=== PATIENT | female | born 1995 | race Caucasian/White ===

== ENCOUNTER 2018-06-09 12:14 | Emergency (ER) | payer BC ==
[~2018-06-09] VITALS: Ht 167.6 cm; Wt 59.0 kg
[2018-06-09 12:24] VITALS: BP 140/89
[2018-06-09] MEDS ORDERED: Norco 5mg/325mg tab ORAL ONE (12:45)
--- NOTE | 2018-06-09 13:23 | Emergency Room Report ---
History of Present Illness General Chief Complaint: Laceration Source: Patient Present Illness HPI 42-year-old female presents to the emergency department complaining of 10 out of 10 in severity pain localized to the distal aspect of the right middle finger times one day. Patient reports she sustained a laceration when she was carrying a heavy face which broke and sliced her finger. Patient reports that she is right-hand dominant. Patient denies taking blood thinning medications she denies suspicion for tiny pieces of glass/foreign bodies in the finger. Patient states she has not taken any medication for her pain. Patient reports pain is worse upon movement of the finger or palpation. Patient denies relieving factors. She states she is up-to-date with her tetanus vaccination. She denies paresthesias or loss of gross motor movements of the affected extremity. Allergies: Coded Allergies: No Known Allergies (Unverified , 06/09/18) Patient History Past Medical History: see triage record Past Surgical History: none Pertinent Family History: none Last Menstrual Period: 05/16/18 Now: No Immunizations: UTD Reviewed Nursing Documentation: PMH: Agreed; PSxH: Agreed Nursing Documentation-PMH Past Medical History: No Stated History Review of Systems All Other Systems: negative except mentioned in HPI Physical Exam Vital Signs Date Time Temp Pulse Resp B/P (MAP) Pulse Ox O2 Delivery O2 Flow Rate FiO2 06/09/18 12:19 98.2 75 18 140/89 98 Room Air Sp02 EP Interpretation: reviewed, normal General Appearance: alert, GCS 15, non-toxic, mild distress Head: normocephalic, atraumatic Eyes: bilateral eye normal inspection, bilateral eye PERRL ENT: hearing grossly normal, normal voice Neck: full range of motion Respiratory: lungs clear, normal breath sounds, speaking full sentences Cardiovascular #1: regular rate, rhythm, normal capillary refill Musculoskeletal: back normal, gait/station normal, normal range of motion, non- tender Neurologic: alert, oriented x3, responsive, motor strength/tone normal, sensory intact, speech normal, grossly normal Psychiatric: judgement/insight normal Skin: normal color, no rash, warm/dry, well hydrated, laceration - Flap laceration to the right finger pad approx 2 cm in length, no obvious FB's Procedures Laceration/Wound Repair Laceration/Wound Repair : Consent: Verbal Wound Location: upper extremity - Rifhgt middle finger Wound's Depth, Shape: flap Wound Length (cm): 2 Wound Explored: clean Irrigated w/ Saline (ccs): 1000 Anesthesia: 1% Lidocaine Volume Anesthetic (ccs): 5 Wound Repaired With: sutures Suture Size/Type: 4:0 Number of Sutures: 9 Layer Closure?: No Sterile Dressing Applied?: Yes Splint Applied?: Yes Type of Splint Applied: Right finger splint Sling Applied?: No Patient Tolerated: Well Complications: None Medical Decision Making PA Attestation Dr. bruce is my supervising Physician whom patient management has been discussed with. Diagnostic Impression: Primary Impression: Laceration ER Course 42-year-old female presents to the emergency department complaining of 10 out of 10 in severity pain localized to the distal aspect of the right middle finger times one day. Patient reports she sustained a laceration when she was carrying a heavy face which broke and sliced her finger. Patient reports that she is right-hand dominant. Patient denies taking blood thinning medications she denies suspicion for tiny pieces of glass/foreign bodies in the finger. Patient states she has not taken any medication for her pain. Patient reports pain is worse upon movement of the finger or palpation. Patient denies relieving factors. She states she is up-to-date with her tetanus vaccination. She denies paresthesias or loss of gross motor movements of the affected extremity. Ddx considered but are not limited to laceration, tendon injury, cellulitis, amputation Vital signs: are WNL, pt. is afebrile H&PE are most consistent with: Flap laceration to the right finger pad approx 2 cm in length ORDERS: none required at this time, the diagnosis is clinical ED INTERVENTIONS: - [place] PO --- for pain, and pt. was visibly anxious. - The wound was copiously irrigated with normal saline, and explored for foreign body for which no FB was found. - pt. is anesthetized with 1%lidocaine- digital block method - The wound was approximated and closed using 9 interrupted 4.0 Ethilon sutures. -Bacitracin and sterile dressing is applied. - - Finger Splint applied to the RMF by media technician. Pt. remains neurovascularly intact. Discussed with patient: That we make every effort to approximate the laceration as best as we can so that scarring will be as cosmetically pleasing as possible with our limited cosmetic skill set in the Emergency dept. Regardless of our best efforts there will be scarring after laceration repair. The extent of scarring is unknown at this time. DISCHARGE: At this time pt. is stable for d/c to home. Will provide printed patient care instructions, and any necessary prescriptions. Care plan and follow up instructions have been discussed with the patient prior to discharge. Last Vital Signs Date Time Temp Pulse Resp B/P (MAP) Pulse Ox O2 Delivery O2 Flow Rate FiO2 06/09/18 12:24 98.2 86 18 140/89 98 Room Air Disposition: HOME, SELF-CARE Condition: Stable Scripts Ibuprofen* (MOTRIN*) 600 Mg Tablet 600 MG ORAL THREE TIMES A DAY, #30 TAB 0 Refills Prov: Catalina Chance 06/09/18 Bacitracin/Polymyxin B Sulfate (BACITRACIN-POLYMYXIN OINTMENT) 28.35 Gm Oint...g. 1 APPLIC TP BID, #28.3 GM Prov: Catalina Chance 06/09/18 Cephalexin* (KEFLEX*) 500 Mg Capsule 500 MG ORAL EVERY 12 HOURS for 7 Days, #14 CAP 0 Refills Prov: Catalina Chance 06/09/18 Patient Instructions: Laceration Care, Adult Additional Instructions: Take medications as directed. SUTURES TO BE REMOVED IN 12-14 days Follow up with a Primary Care Provider in 3-5 days, even if your symptoms have resolved. --Please review list of primary care clinics, if you do not already have a primary care provider Return sooner to ED if new symptoms occur, or current symptoms become worse. - Please note that this Emergency Department Report was dictated using [employer] medical technologist technology software, occasionally this can lead to erroneous entry secondary to interpretation by the dictation equipment. Catalina Chance Jun 09, 2018 13:23
[2018-06-09] MEDS ORDERED: IBUPROFEN600 MG ORAL (14:10)
[2018-06-09] MEDS ORDERED: CEPHALEXIN500 MG ORAL (14:10)
[2018-06-09] MEDS ORDERED: BACITRACIN-P28.35 GM TP (14:10)
[2018-06-09] MEDS ORDERED: Bacitracin Oint UD TOPIC ONE (14:15)
[2018-06-09 14:20] VITALS: BP 116/98
== END 2018-06-09 14:20 | disposition home or self-care (01) ==
LOC: EMR 12:42
DX: S61.212A Laceration without foreign body of right middle finger without damage to nail, initial encounter (principal); W45.8XXA Other foreign body or object entering through skin, initial encounter; Y92.9 Unspecified place or not applicable
CPT/HCPCS: 99283